=== PATIENT | female | born 1970 | race Hispanic/Latino ===

== ENCOUNTER 2022-04-26 19:57 | Emergency (ER) | payer OTHER, SELFPAY | END 2022-04-26 21:09 | disposition home or self-care (01) | LOC: CSHERS 19:57 | DX: K02.9 Dental caries, unspecified (principal); L03.211 Cellulitis of face; K04.7 Periapical abscess without sinus | CPT/HCPCS: 99283 ==

== ENCOUNTER 2022-08-29 07:46 | Emergency (ER) | payer SELFPAY | END 2022-08-29 09:48 | disposition home or self-care (01) | LOC: CSHERS 07:46 | DX: J11.1 Influenza due to unidentified influenza virus with other respiratory manifestations (principal) ==